=== PATIENT | female | born 1950 | race Caucasian/White ===

== ENCOUNTER → 2017-07-29 13:33 | Outpatient (CLI) | payer MEDICARE, OTHER, SELFPAY ==
--- NOTE | 2017-07-29 13:42 | CA_ITS ---
PROCEDURE: 2-D M-mode and color Doppler study INDICATIONS FOR THE TEST: Chest pain COPD Heart Murmur Tobacco Smoking Palpitations+ Fatigue Syncope Edema Hypertension Diabetes Mellitus Rheumatic Fever SOB WILLARD Obesity Hyperlipidemia Family History HD Additional History Abn EKG PATIENT INFORMATION HEIGHT: 62 WEIGHT:147 GENDER: Female B/P: 148/93 2-D/M-MODE INTERPRETATION: 2-D MEASUREMENTS OBSERVED VALUES IN CMS Right Ventricular Dimension (RVDd) 1.4 Interventricular Septum (Thickness)(IVsd) 0.7 Left Ventricular Internal Dimensions(LVIDd) 4.3 Left Ventricular Posterior Wall (Thickness)(LVPWd) 0.8 Aortic Root 2.4 Aortic Cusp Separation 2.0 Left Atrial Dimensions (LAD) 3.5 2D 1. Left atrium is mildly enlarged, left ventricle is normal size, there is no concentric left ventricular hypertrophy, visually estimated ejection fraction 55% with no obvious regional wall motion abnormality. 2. The right atrium is mildly enlarged, right ventricle is normal size and contractility. 3. The aortic valve is minimally thickened and fibrosed. 4. The mitral and tricuspid valve leaflets are minimally thickened. 5. The pulmonic valve is poorly visualized. 6. No significant pericardial effusion noted. DOPPLER INTERROGATION: Doppler interrogation of the aortic, mitral and tricuspid valvular presence of mild mitral and tricuspid regurgitation, calculated right ventricular systolic pressure is 49 mmHg consistent with moderate pulmonary hypertension, grade 1 diastolic dysfunction seen without tissue Doppler evidence of raised left atrial pressure. CONCLUSION: 1. Mild biatrial enlargement, normal left ventricular size, visually estimated ejection fraction 55% with no obvious regional wall motion abnormality. 2. Mild mitral and tricuspid regurgitation, calculated I ventricular systolic pressure is 49 mmHg consistent with moderate pulmonary hypertension. 3. Grade 1 diastolic dysfunction seen without tissue Doppler evidence of raised left atrial pressure. 4. No significant pericardial effusion noted.
== END ==
PROVIDERS: Family Provider Nurse Practitioner Family; PCP Family Medicine; Visit Provider Physician Assistant
DX: R00.2 Palpitations (principal)
CPT/HCPCS: 93306

== ENCOUNTER → 2017-10-01 09:53 | Outpatient (CLI) | payer MEDICARE, OTHER, SELFPAY ==
--- NOTE | 2017-10-01 10:01 | MM_ITS ---
MM Dig screening mamm BI w/CAD CAD Screening COMPARISON: Digital mammograms 09/03/2015 and 09/25/2016 INDICATION: There is no personal or family history of breast cancer., There is been a previous cyst aspiration left breast. TECHNIQUE: Standard CC and MLO images were obtained. R2 CAD reviewed. FINDINGS: Mild to moderate scattered fibroglandular densities are seen throughout both breasts. Again noted is a mole marker right breast. There is no suspicious lesion and no suspicious microcalcifications. There is a fatty replaced node left axilla. IMPRESSION: Fibrofatty parenchyma with no suspicious lesion seen recommend yearly follow-up. BI-RADS Category: 2 Benign Finding(s) RECOMMENDED FOLLOW-UP: 1YR - 1 YEAR FOLLOW-UP (A letter has been sent to the patient regarding results of the study.)
== END ==
PROVIDERS: Family Provider Nurse Practitioner Family; PCP Family Medicine; Visit Provider Family Medicine
DX: Z12.31 Encounter for screening mammogram for malignant neoplasm of breast (principal)
CPT/HCPCS: 77067

== ENCOUNTER → 2018-10-07 09:52 | Outpatient (CLI) | payer MEDICARE, OTHER, SELFPAY ==
--- NOTE | 2018-10-07 09:58 | MM_ITS ---
MM Dig screening mamm BI w/CAD ORDERING PHYSICIAN : Timothy Cartwright MD PATIENT AGE: 67 years GENDER: Female COMPARISON: September 2017, 2016, August 2015 INDICATION: Routine: SCREENING no hormones. No new complaints. Previous cyst aspiration left breast. Noncontributory family history TECHNIQUE: Standard CC and MLO images were obtained. R2 CAD reviewed. . Additional Axillary cc both breast included FINDINGS: Mild to moderate residual, scattered fibroglandular elements. No dominant mass nor suspicious calcifications. No significant change since prior study RIGHT BREAST:. No new areas concern. Minimal vascular calcification upper outer quadrant LEFT BREAST:No new areas significant concern IMPRESSION: Stable bilateral mammogram no areas of significant concern. BI-RADS Category: 2 Benign Finding(s) RECOMMENDED FOLLOW-UP: 1YR 1 YEAR FOLLOW-UP (A letter has been sent to the patient regarding results of the study.)
== END ==
PROVIDERS: PCP Family Medicine; Visit Provider Family Medicine
DX: Z12.31 Encounter for screening mammogram for malignant neoplasm of breast (principal)
CPT/HCPCS: 77067

== ENCOUNTER → 2018-10-15 09:09 | Outpatient (CLI) | payer MEDICARE, OTHER, SELFPAY ==
--- NOTE | 2018-10-15 09:13 | XR_ITS ---
XR tibia fibula RT 2V CLINICAL INDICATION: ITS.REASON: pain ORDERING PHYSICIAN: Patsy Dubois DPM PATIENT AGE: 67 years Comparison: None FINDINGS: There is a fracture of the lateral malleolus. The proximal and mid aspect of the tibia and fibula have an unremarkable appearance. The knee is unremarkable. Soft tissue swelling has decreased at the lateral malleoli region. IMPRESSION: Nondisplaced fracture at the tip of the lateral malleolus otherwise negative right tib-fib.
== END ==
PROVIDERS: PCP Family Medicine; Visit Provider Podiatrist
DX: T14.8XXA Other injury of unspecified body region, initial encounter (principal); S82.899A Other fracture of unspecified lower leg, initial encounter for closed fracture
CPT/HCPCS: 73590

== ENCOUNTER → 2018-11-09 12:31 | Outpatient (CLI) | payer MEDICARE, OTHER, SELFPAY ==
--- NOTE | 2018-11-09 12:36 | XR_ITS ---
XR ankle wt bearing RT min 3V HISTORY: ITS.REASON: fracture follow-up ORDERING PHYSICIAN: Patsy Dubois DPM PATIENT AGE: 67 years Comparison: 10/11/2018 FINDINGS: Avulsion fracture of the tip of the lateral malleolus is once again noted and is overall not severely changed. Fracture fragments are not significantly displaced. The talar dome has an unremarkable appearance and the ankle mortise appears intact. Soft tissue swelling has improved IMPRESSION: No change avulsion fracture lateral malleolus
== END ==
PROVIDERS: PCP Family Medicine; Visit Provider Podiatrist
DX: S82.831D Other fracture of upper and lower end of right fibula, subsequent encounter for closed fracture with routine healing
CPT/HCPCS: 73610

== ENCOUNTER → 2018-11-25 14:06 | Outpatient (CLI) | payer MEDICARE, OTHER, SELFPAY ==
--- NOTE | 2018-11-25 14:15 | XR_ITS ---
XR ankle wt bearing RT min 3V HISTORY: Pain, follow-up fracture ITS.REASON: fracture follow up ORDERING PHYSICIAN: Patsy Dubois DPM PATIENT AGE: 67 years Comparison: None FINDINGS: Avulsion fracture once again noted the tip of the lateral malleolus. Fracture line still visible no other anomalies evident. IMPRESSION: No change nondisplaced fracture of the tip of the lateral malleolus
== END ==
PROVIDERS: PCP Family Medicine; Visit Provider Podiatrist
DX: T14.8XXA Other injury of unspecified body region, initial encounter (principal); S82.831D Other fracture of upper and lower end of right fibula, subsequent encounter for closed fracture with routine healing
CPT/HCPCS: 73610

== ENCOUNTER → 2018-12-17 12:49 | Outpatient (CLI) | payer MEDICARE, OTHER, SELFPAY ==
--- NOTE | 2018-12-17 12:51 | XR_ITS ---
DEXA SCAN.-BONE DENSITY STUDY HIPS AND LUMBAR SPINE HISTORY: Postmenopausal female TECHNIQUE: DEXA scan hip and lumbar spine The most complete data summary and color graphic presentation of the today's ( and any prior ) DEXA findings are available in PACS. Definition and treatment guidelines included. COMPARISON: September 2016 DEXA FINDINGS: LUMBAR SPINE: would note that today's numbering of lumbar vertebral bodies differently than previous which , does decrease the usefulness of comparison the previous study data lumbar spine however the hips labeling is consistent.... However overall fairly stable numbers throughout the lumbar spine, with normal bone density again observed with this provides in general overview. I would note that today's study has the correct labeling of vertebral bodies L1 vertebral body demonstrates the lowest T score -0.7 with BMD1.041 g/cm sq = normal bone density Overall mean lumbar L1-L4 T score -0.1 with BMD1.173 g/cm sq . = Normal bone density 2017 prior DEXA the mean overall T score 0.0 with BMD was1.174g/cm sq was normal. Fairly stable overall since that time .. HIPS: Femoral neck density is best predictor of hip fracture risk .. Right femoral neck demonstrates the lowest T score -1.0 with BMD0.9 g/cm sq . = Low normal bone density Left femoral neck T score =-0.8 and BMD 0.923 = normal bone density Averaging all regions at both hips yields today's Mean Hip T score -0.2 with BMD0.977 g/cm sq . 2017 DEXA overall hip T score -0.5 with mean BMD0.951 g/cm sq Thus this reflects a 2.7% increase in overall mean bone density at the hips in the interval. IMPRESSION 1. LUMBAR SPINE: Normal bone density overall & at each individual vertebral level 2. HIPS: . Overall normal bone density with overall T score -0.2 .... Femoral necks with normal bone density and slight improved bone density since 2017 Right femoral neck low normal T-score -0.1.; Left femoral neck T score -0.8 WHO criteria for post-menopausal, Women: Normal: T-score at or above -1 SD Osteopenia: T-score between -1 and -2.5 SD Osteoporosis: T-score at or below -2.5 SD
== END ==
PROVIDERS: PCP Family Medicine; Visit Provider Family Medicine
DX: Z78.0 Asymptomatic menopausal state (principal)
CPT/HCPCS: 77080

== ENCOUNTER → 2019-01-13 08:39 | Outpatient (CLI) | payer MEDICARE, OTHER, SELFPAY ==
--- NOTE | 2019-01-13 08:43 | XR_ITS ---
XR ankle wt bearing RT min 3V HISTORY: Pain, follow-up fracture ITS.REASON: Fracture/dislocation ORDERING PHYSICIAN: Patsy Dubois DPM PATIENT AGE: 68 years Comparison: 11/25/2018 FINDINGS: Nondisplaced fracture once again noted at the tip of the lateral malleolus. Fracture line appears somewhat less apparent. Otherwise negative. IMPRESSION: Healing nondisplaced fracture at the tip of the lateral malleolus
== END ==
PROVIDERS: PCP Family Medicine; Visit Provider Podiatrist
DX: S82.831A Other fracture of upper and lower end of right fibula, initial encounter for closed fracture (principal); T14.8XXA Other injury of unspecified body region, initial encounter
CPT/HCPCS: 73610

== ENCOUNTER → 2019-12-30 08:55 | Outpatient (CLI) | payer MEDICARE, OTHER, SELFPAY ==
--- NOTE | 2019-12-30 09:05 | MM_ITS ---
PROCEDURE: MM DIG SCREENING MAMM BI W/CAD Digital Breast Tomosynthesis Included CLINICAL INDICATION: SCREENING There is no personal or family history of breast cancer. There has been a previous cyst aspiration left breast with benign findings. COMPARISON: [facility] DIG MAMM-SCREEN [facility] W/CAD from 09/25/2016 [facility] MM Dig screening mamm BI w/CAD from 10/01/2017 [facility] MM Dig screening mamm BI w/CAD from 10/07/2018 TECHNIQUE: Standard CC and MLO images and 3D Tomosynthesis was obtained. R2 CAD reviewed. FINDINGS: Mild diffuse scattered fibroglandular densities are seen throughout both breasts. There is a mole marker right breast. There is faint arterial calcification in each breast. There is no new or suspicious lesion in either breast and no suspicious microcalcifications. There is a fatty replaced node left axilla. IMPRESSION: Stable exam with no suspicious lesions seen BI-RAD Category: 2 Benign Finding(s) FOLLOW-UP: 1YR 1 Year Follow-up (A letter has been sent to the patient regarding results of the study.) Dictated by: Dr. Wenceslao Hoover MD 12/30/2019 09:[address] Wenceslao Hoover MD in [place] 12/30/2019 09:36
== END ==
PROVIDERS: PCP Family Medicine; Visit Provider Family Medicine
DX: Z12.31 Encounter for screening mammogram for malignant neoplasm of breast (principal)
CPT/HCPCS: 77063; 77067

== ENCOUNTER → 2020-12-31 09:52 | Outpatient (CLI) | payer MEDICARE, OTHER, SELFPAY ==
--- NOTE | 2020-12-31 09:56 | MM_ITS ---
PROCEDURE INFORMATION: Exam: MG Screening 3D Mammography Exam date and time: 12/31/2020 9:56 AM Age: 70 years old Clinical indication: Encounter for screening mammogram for malignant neoplasm of breast TECHNIQUE: Imaging protocol: Screening tomosynthesis and 2D mammography including computer-aided detection (CAD) when performed. COMPARISON: 1. MG MM DIG SCREENING MAMM BI W/CAD 12/30/2019 9:05 AM 2. MG [facility] MM Dig screening mamm BI w/CAD 10/07/2018 10:20 AM FINDINGS: MAMMOGRAPHY: Breast composition: The breast tissue is composed of scattered areas of fibroglandular density. Mass: None. Architectural distortion: None. Calcifications: No suspicious calcifications. Asymmetric density: None. Skin thickening: None. Axillary adenopathy: None. IMPRESSION: No mammographic evidence of malignancy. Annual screening is recommended unless otherwise clinically indicated. ASSESSMENT: BI-RADS Category 1: Negative
== END ==
PROVIDERS: PCP Family Medicine; Visit Provider Family Medicine
DX: Z12.31 Encounter for screening mammogram for malignant neoplasm of breast (principal)
CPT/HCPCS: 77063; 77067

== ENCOUNTER → 2021-01-02 13:53 | Outpatient (POV) | payer MEDICARE, OTHER, SELFPAY | DX: Z00.00 Encounter for general adult medical examination without abnormal findings (principal) ==

== ENCOUNTER 2021-03-29 01:59 | Emergency (ER) | payer MEDICARE, OTHER, SELFPAY ==
--- NOTE | 2021-03-29 01:59 | ECG_ITS ---
APPROVED REPORT Exam: Resting ECG HR:63 bpm ECG Measurements Heart Rate 63 AXES IA 144 P 61 QRSd 86 QRS 59 QT 386 T 82 QTc 395 Conclusion Normal sinus rhythm Possible Left atrial enlargement ST abnormality, possible digitalis effect Abnormal ECG Electronically signed by : Timothy Gomez MD 04/01/2021 21:02:27
[2021-03-29 02:00] VITALS: BP 190/82; PULSE 72; RESP 18; O2SAT 98; BMI 30.2
--- NOTE | 2021-03-29 02:07 | XR_ITS ---
PROCEDURE INFORMATION: Exam: XR Chest Exam date and time: 03/29/2021 2:07 AM Age: 70 years old Clinical indication: Sternal or substernal pain; Patient HX: Mid lower chest pain off and on TECHNIQUE: Imaging protocol: XR of the chest. Views: 2 views. COMPARISON: No relevant prior studies available. FINDINGS: Lungs: Unremarkable. No consolidation. Pleural spaces: No pleural effusion. No pneumothorax. Heart/Mediastinum: Normal heart size. Bones/joints: [id number] spondylosis. IMPRESSION: No acute findings.
--- NOTE | 2021-03-29 02:09 | HMH.EDCP ---
ED Disposition Clinical Impression: Chest pain Qualifiers: Chest pain type: precordial pain Qualified Code(s): R07.2 - Precordial pain Disposition: Home, Self-Care Condition on Discharge: Good Instructions: DI for Atypical Chest Pain Additional Instructions: see pcp this am Referrals: Timothy Cartwright MD [Primary Care Provider] - - Critical Care Critical Care Time: No Attestation: On , the high probability of a clinically significant, sudden or life threatening deterioration of the following system(s) required my full and direct attention, intervention and personal management. The time I documented below is in addition to time spent performing reported procedures but includes the following listed in this critical care notation. Medical Decision Making - Medical Records Medical records reviewed: Yes: I reviewed the patient's medical records. - Epter Inquiry Pt receiving controlled substance: No Vital Signs: 03/29/21 02:00 Pulse Rate [Apical] 72 Respiratory Rate 18 Blood Pressure [Right Arm] 190/82 H Blood Pressure Mean [Right Arm] 118 Blood Pressure Source [Right Arm] Automatic Cuff Blood Pressure Position [Right Arm] Sitting 02 Sat by Pulse Oximetry 98 Oxygen Delivery Method Room Air - Lab Data Lab results reviewed: Yes: I reviewed the patient's lab results. Lab Results 03/29/21 02:23: WBC 8.0, RBC 5.39, Hgb 16.2, Hct 49.8 H, MCV 92.3, MCH 30.0, MCHC 32.5, RDW 13.7, Plt Count 195, MPV 9.4, Neut % (Auto) 68.1, Lymph % (Auto) 23.0, Schleicher % (Auto) 5.0, Eos % (Auto) 2.9, Baso % (Auto) 1.0, Neut # (Auto) 5.4, Lymph # (Auto) 1.8, Schleicher # (Auto) 0.4, Eos # (Auto) 0.2, Baso # (Auto) 0.1, ESR 23 03/29/21 02:23: Sodium 140, Potassium 4.3, Chloride 98, Carbon Dioxide 32 H, Anion Gap 14.3, BUN 24 H, Creatinine 0.80, Estimated Creat Clear 61, Estimated GFR 71, Est GFR ( Amer) 86, Glucose 141 H, Calcium 10.1, Total Bilirubin 0.7, Direct Bilirubin 0.3, Conjugated Bilirubin 0.0, Indirect Bilirubin 0.4, Unconjugated Bilirubin 0.3, AST 29, ALT 26, Alkaline Phosphatase 88, Troponin I < 0.01, C-Reactive Protein 2.5, Total Protein 8.2, Albumin 4.3, Amylase 84, Lipase 121, Procalcitonin 0.054 Result diagrams: 03/29/21 02:23 03/29/21 02:23 Orders (Tests/Meds): ED MEDICATIONS Generic Name Dose Route Start Last Admin Trade Name Freq PRN Reason Stop Dose Admin Sodium Chloride 1,000 mls @ 999 mls/hr 03/29/21 02:15 03/29/21 02:12 Sod Chlor 0.9% 1000ml Bag IV 03/29/21 03:15 999 mls/hr .Q1H1M RACHANA Administration Sodium Chloride 8 ml 03/29/21 02:09 Sodium Chloride 0.9% 10ml Vial IV 04/28/21 02:08 NEEDED PRN dilute pepcid Discontinued Medications Generic Name Dose Route Start Last Admin Trade Name Freq PRN Reason Stop Dose Admin Famotidine 20 mg 03/29/21 02:09 03/29/21 02:12 Famotidine 20mg/2ml Vial IV 03/29/21 02:10 20 mg ONCE ONE Administration Ketorolac Tromethamine 30 mg 03/29/21 02:09 03/29/21 02:12 Ketorolac 30mg/Ml Vial IV 03/29/21 02:10 30 mg ONCE ONE Administration Metoclopramide HCl 10 mg 03/29/21 02:09 03/29/21 02:12 Metoclopramide Hcl 10mg/2ml Vial IVP 03/29/21 02:10 10 mg ONCE ONE Administration ORDERS Category Date Time Status XR chest 2V Stat Exams 03/29/21 02:07 Taken Troponin I Q3H Lab 03/29/21 05:15 Ordered Troponin I Q3H Lab 03/29/21 08:15 Ordered - Radiology Data #1 Image(s): Chest Image Reviewed: Yes I reviewed the patient's radiology image Preliminary Findings: Normal/NAD - ECG Data Tracing #1 Normal Sinus Rhythm: Yes Ischemic changes: non-specific ST-T wave changes Medical Decision Narrative: improved after meds and stable exam and labs does not wish to be admitted Chest Pain HPI - General Chief Complaint: Chest Pain Stated Complaint: Chest Pain Time Seen by Provider: 03/29/21 02:05 Mode of Arrival: Ambulatory Source of Information: Patient, Medical Record Limitations: No Limi
--- NOTE | 2021-03-29 02:28 | PC.NURSE ---
PT IN BATHROOM. BACK FROM CT
[2021-03-29 02:30] LABS: Basophils # 0.1 K/mm3 (0-0.2); Eosinophils # 0.2 K/mm3 (0.0-0.4); Eosinophils % 2.9 % (0.1-12.0); Hematocrit 49.8 % (37.0-47.0); Hemoglobin 16.2 g/dL (12.2-16.2); Lymphocytes # 1.8 K/mm3 (0.7-4.5); Mean Corpuscular HGB Conc 32.5 g/dL (31.8-35.4); Mean Corpuscular Volume 92.3 fl (81-99); Mean Platelet Volume 9.4 fl (7.4-10.4); Monocytes # 0.4 K/mm3 (0.1-1.0); Neutrophils # 5.4 K/mm3 (1.8-7.8); Neutrophils % 68.1 % (37.0-80.0); Platelet Count 195 K/mm3 (142-424); Red Blood Count 5.39 M/mm3 (4.20-5.40); Red Cell Distribution Width 13.7 % (11.5-17.5)
[2021-03-29 02:36] VITALS: BP 175/97; PULSE 65; RESP 16; O2SAT 99
[2021-03-29 02:39] LABS: Alanine Aminotransferase 26 U/L (12-78); Albumin Level 4.3 g/dl (3.5-5.0); Alkaline Phosphatase 88 U/L (38-126); Amylase 84 U/L (30-110); Anion Gap 14.3 mEq/L (5-15); Aspartate Amino Transferase 29 U/L (14-36); Bilirubin,Direct 0.3 mg/dl (0.0-0.4); Bilirubin,Indirect 0.4 mg/dL (0.0-0.9); Bilirubin,Total 0.7 mg/dl (0.2-1.3); Bilirubin,Unconjugated 0.3 mg/dL (0.0-1.1); Blood Urea Nitrogen 24 mg/dl (7-17); Calcium 10.1 mg/dl (8.4-10.2); Carbon Dioxide 32 mmol/L (22.0-30.0); Chloride 98 mmol/L (98-107); Creatinine Clearance Estimated 61 mL/min (50-200); Estimated Glomerular Filt Rate 71 ml/min (>60); GFR (African American) 86 ML/MIN (>60); Glucose 141 mg/dl (74-100); Lipase 121 U/L (23-300); Potassium 4.3 mmoL/L (3.5-5.1); Sodium 140 mmol/L (136-145); Total Protein,Serum 8.2 g/dl (6.3-8.2)
[2021-03-29 02:45] LABS: C-Reactive Protein 2.5 mg/L (0-4)
[2021-03-29 02:55] LABS: Troponin I < 0.01 ng/ml (0.00-0.034)
[2021-03-29 02:59] LABS: Procalcitonin 0.054 ng/mL (0.0-2.0)
[2021-03-29 03:00] VITALS: BP 159/99; PULSE 70; RESP 16; O2SAT 100
[2021-03-29 03:05] LABS: Erythrocyte Sedimentation Rate 23 mm/hr (0-30)
[2021-03-29 03:14] VITALS: BP 177/90; PULSE 88; RESP 16; TEMP 36.8; O2SAT 98
== END 2021-03-29 03:26 | disposition home or self-care (01) ==
PROVIDERS: Emergency Provider Emergency Medicine; PCP Family Medicine
DX: R07.2 Precordial pain (principal); R10.13 Epigastric pain; I10 Essential (primary) hypertension
CPT/HCPCS: 71046; 80048; 80076; 82150; 83690; 84145; 84484; 85025; 85651; 86140; 93005; 96365; 96375; 99283

== ENCOUNTER 2021-08-17 10:44 | Emergency (ER) | payer MEDICARE, OTHER, SELFPAY ==
[2021-08-17 12:02] VITALS: BP 146/89; PULSE 69; RESP 19; TEMP 37.4; O2SAT 97; BMI 29.2
--- NOTE | 2021-08-17 12:06 | HMH.EDUTC ---
[facility] [place] Disposition Clinical Impression: Pneumonia due to COVID-19 virus Disposition: Home, Self-Care Condition on Discharge: Good Instructions: Pneumonia-Adult Additional Instructions: covid swab was sent to lab, call tomorrow for results. self isolate until test results are known to be negative No sign of a bacterial infection. Likely viral. Viruses can take 7-14 days to run their course. Nasal saline and bulb syringe or nose Delisa to remove nasal drainage to help with nasal congestion. Hard to eat, drink, sleep with nasal congestion so important to keep this cleaned out. Monitor temp. Tylenol or Motrin as needed for pain or fever Encourage fluids, water, Gatorade, Powerade, Pedialyte if /toddler/child Warm salt water gargles Warm fluids Sore throat lozenges Sleep elevated Humidifier/vaporizer Follow-up immediately for new or worsening symptoms or no noticeable improvement over the next 48-72 hours. Prescriptions: predniSONE [Prednisone 20mg Tab] 20 mg PO BID #10 tab Transmission Status: Pending to [facility] Azithromycin [Zithromax 250mg tab] 250 mg PO DIRECTED #6 tab Transmission Status: Pending to [facility] Referrals: Timothy Cartwright MD [Primary Care Provider] - Time of Disposition: 13:51 Medical Decision Making - Peter Inquiry Pt receiving controlled substance: No Vital Signs: 08/17/21 12:02 Temperature 99.3 F Temperature Source Oral Pulse Rate [Left] 69 Respiratory Rate 19 Blood Pressure [Right Arm] 146/89 H Blood Pressure Mean [Right Arm] 108 02 Sat by Pulse Oximetry 97 - Lab Data Lab Results 08/17/21 12:46: WBC 8.8, RBC 5.14, Hgb 15.2, Hct 48.0 H, MCV 93.4, MCH 29.6, MCHC 31.7 L, RDW 13.8, Plt Count 183, MPV 10.0, Neut % (Auto) 88.5 H, Lymph % (Auto) 6.0 L, Kent % (Auto) 3.5, Eos % (Auto) 1.4, Baso % (Auto) 0.7, Neut # (Auto) 7.8, Lymph # (Auto) 0.5 L, Kent # (Auto) 0.3, Eos # (Auto) 0.1, Baso # (Auto) 0.1 08/17/21 12:46: Sodium 138, Potassium 4.3, Chloride 104, Carbon Dioxide 27, Anion Gap 11.3, BUN 18 H, Creatinine 0.70, Estimated Creat Clear 63, Estimated GFR 82, Est GFR ( Amer) 100, Glucose 112 H, Calcium 9.9, Troponin I < 0.01 Result diagrams: 08/17/21 12:46 08/17/21 12:46 Orders (Tests/Meds): ORDERS Category Date Time Status Complete Blood Count Auto Diff Stat Lab 08/17/21 12:46 Results ECG Request by /Roddy Stat Y 08/17/21 12:[address] [facility] [place] HPI - General Chief complaint: Urgent [facility] Center Stated complaint: covid pos at home test, vomiting, diarrhea Time Seen by Provider: 08/17/21 12:11 Mode of Arrival: Ambulatory Source of Information: Patient Limitations: No Limitations Description of Symptoms (Recalled from Triage Doc. by RN): COVID POSITIVE. pt c/o chest congestion and n/v/d x2 days. HEENT Symptoms (Recalled from RN notes): No Resp Symptoms (Recalled from RN notes): Yes (chest congestion) Skin Symptoms (Recalled from RN notes): No MS Symptoms (Recalled from RN notes): No Functional Status (Recalled from RN notes): wnl - History of Present Illness Provider Complaint: 70 yr old female presents for COVID POSITIVE. c/o chest congestion and n/v/d x2 days. pt states pain in center chest does not radiate and does not get worse its a constant pain in mid chest since yesterday but has not gotten worse. pt does not want to go to ed - Related Data Home Medications Medication Instructions Recorded Confirmed bisoprolol fumarate 5 mg tablet PO 90 Days #45 tab 10/15/18 01/13/19 Previous Rx's Medication Instructions Recorded Walker [Cyrus, Isa] 1 each MISCELLANEOUS DIRECTED 10/11/18 #1 each diclofenac sodium 1 % topical gel 4 g TOPICAL QID #30 g 11/25/18 Azithromycin [Zithromax 250mg 250 mg PO DIRECTED #6 tab 08/17/21 tab] predniSONE [Prednisone 20mg 20 mg PO BID #10 tab 08/17/21 Tab] Allergies Allergy/AdvReac Type Severity Reaction Status Date / Time sulfamethoxazole All
--- NOTE | 2021-08-17 12:14 | XR_ITS ---
PROCEDURE INFORMATION: Exam: XR Chest Exam date and time: 08/17/2021 12:14 PM Age: 70 years old Clinical indication: Shortness of breath; Additional info: Covid, SOB TECHNIQUE: Imaging protocol: XR of the chest. Views: 2 views. COMPARISON: CR XR CHEST 2V 03/29/2021 2:17 AM FINDINGS: Lungs: The lateral view shows slightly increased hazy opacity projected over the anterior lower chest compared with the previous study from 03/29/2021, which could be subtle airspace disease in the right middle lobe or lingula. There is chronic slight bilateral infrahilar interstitial prominence. No focal consolidation. Pleural spaces: Unremarkable. No significant pleural effusion. No pneumothorax. Heart/Mediastinum: Upper normal heart size. Bones/joints: Mild chronic thoracolumbar scoliosis, multilevel disc narrowing and spondylosis. IMPRESSION: 1. Question minimal new hazy airspace disease in the right middle lobe or lingula compared with 03/29/2021, only seen on the lateral view. 2. No focal consolidation. 3. Additional nonemergency and chronic findings as above. 4. Note: Subtle ground-glass opacities of COVID-19 pneumonia can be radiographically occult on plain chest x-ray. If further imaging is warranted by the clinical findings or course, recommend CT.
--- NOTE | 2021-08-17 12:29 | ECG_ITS ---
APPROVED REPORT Exam: Resting ECG HR:65 bpm ECG Measurements Heart Rate 65 AXES VA 158 P 50 QRSd 73 QRS 67 QT 380 T 82 QTc 391 Conclusion SINUS RHYTHM MODERATE ST DEPRESSION [0.05+ mV ST DEPRESSION] ABNORMAL ECG UNCONFIRMED REPORT Electronically signed by : Timothy Gomez MD 08/19/2021 18:35:51
[2021-08-17 12:58] LABS: Basophils # 0.1 K/mm3 (0-0.2); Basophils % 0.7 % (0.1-2.0); Eosinophils # 0.1 K/mm3 (0.0-0.4); Eosinophils % 1.4 % (0.1-12.0); Hemoglobin 15.2 g/dL (12.2-16.2); Lymphocytes # 0.5 K/mm3 (0.7-4.5); Mean Corpuscular HGB Conc 31.7 g/dL (31.8-35.4); Mean Corpuscular Hemoglobin 29.6 pg (27.0-31.2); Mean Corpuscular Volume 93.4 fl (81-99); Monocytes # 0.3 K/mm3 (0.1-1.0); Monocytes % 3.5 % (1.7-9.3); Neutrophils # 7.8 K/mm3 (1.8-7.8); Neutrophils % 88.5 % (37.0-80.0); Platelet Count 183 K/mm3 (142-424); Red Blood Count 5.14 M/mm3 (4.20-5.40); Red Cell Distribution Width 13.8 % (11.5-17.5); White Blood Count 8.8 K/mm3 (4.8-10.8)
[2021-08-17 13:01] LABS: Chloride 104 mmol/L (98-107); MANUAL DIFFERENTIAL MANUAL DIFFERENTIAL (MANUAL DIFF)
[2021-08-17 13:02] LABS: Potassium 4.3 mmoL/L (3.5-5.1); Sodium 138 mmol/L (136-145)
[2021-08-17 13:04] LABS: Blood Urea Nitrogen 18 mg/dl (7-17); Creatinine Clearance Estimated 63 mL/min (50-200); Estimated Glomerular Filt Rate 82 ml/min (>60); GFR (African American) 100 ML/MIN (>60)
[2021-08-17 13:05] LABS: Anion Gap 11.3 mEq/L (5-15); Calcium 9.9 mg/dl (8.4-10.2); Carbon Dioxide 27 mmol/L (22.0-30.0); Glucose 112 mg/dl (74-100)
[2021-08-17 13:23] LABS: Troponin I < 0.01 ng/ml (0.00-0.034)
[2021-08-17 13:56] VITALS: BP 146/89; PULSE 69; RESP 19; TEMP 37.4
[2021-08-17 14:36] LABS: Hypochromasia 1+; Lymphocytes % 12 % (10-50); Monocytes % 5 % (2-9); Neutrophils % 83 % (42-76); Platelet Estimate Normal; Total Cells Counted 100
== END 2021-08-17 13:57 | disposition home or self-care (01) ==
PROVIDERS: Emergency Provider Nurse Practitioner Family; PCP Family Medicine
DX: U07.1 COVID-19 (principal); J12.82 Pneumonia due to coronavirus disease 2019; I10 Essential (primary) hypertension; I49.9 Cardiac arrhythmia, unspecified; Z88.2 Allergy status to sulfonamides; Z79.899 Other long term (current) drug therapy
CPT/HCPCS: G0463; 71046; 80048; 84484; 85007; 85025; 93005; 93041; 99202

== ENCOUNTER → 2021-11-18 09:12 | Outpatient (CLI) | payer MEDICARE, OTHER, SELFPAY ==
[2021-11-18 13:34] LABS: Basophils # 0.1 K/mm3 (0-0.2); Eosinophils # 0.1 K/mm3 (0.0-0.4); Eosinophils % 2.4 % (0.1-12.0); Hematocrit 46.7 % (37.0-47.0); Hemoglobin 15.4 g/dL (12.2-16.2); Lymphocytes # 1.3 K/mm3 (0.7-4.5); Lymphocytes % 23.8 % (10-50); Mean Corpuscular HGB Conc 33.1 g/dL (31.8-35.4); Mean Corpuscular Hemoglobin 29.1 pg (27.0-31.2); Mean Corpuscular Volume 87.9 fl (81-99); Mean Platelet Volume 9.5 fl (7.4-10.4); Monocytes # 0.3 K/mm3 (0.1-1.0); Neutrophils # 3.7 K/mm3 (1.8-7.8); Neutrophils % 66.8 % (37.0-80.0); Platelet Count 213 K/mm3 (142-424); Red Blood Count 5.32 M/mm3 (4.20-5.40); Red Cell Distribution Width 13.1 % (11.5-17.5); White Blood Count 5.5 K/mm3 (4.8-10.8)
[2021-11-18 14:12] LABS: Alanine Aminotransferase 20 U/L (12-78); Albumin Level 4.1 g/dl (3.5-5.0); Albumin/Globulin Ratio 1.5 (1.1-1.8); Alkaline Phosphatase 57 U/L (38-126); Anion Gap 8.5 mEq/L (5-15); Aspartate Amino Transferase 27 U/L (14-36); Bilirubin,Total 1.2 mg/dl (0.2-1.3); Blood Urea Nitrogen 18 mg/dl (7-17); Calcium 9.5 mg/dl (8.4-10.2); Carbon Dioxide 27 mmol/L (22.0-30.0); Chloride 107 mmol/L (98-107); Chol/HDL Ratio 3.3 (1-3.5); Cholesterol 165 mg/dl (140-200); Estimated Glomerular Filt Rate 71 ml/min (>60); GFR (African American) 86 ML/MIN (>60); Globulin 2.7 g/dL (1.3-3.2); Glucose 106 mg/dl (74-100); HDL Cholesterol 50 mg/dl (40-60); Potassium 4.5 mmoL/L (3.5-5.1); Sodium 138 mmol/L (136-145); Total Protein,Serum 6.8 g/dl (6.3-8.2); Triglycerides 70 mg/dl (30-150); VLDL Cholesterol 14 mg/dL (0-40)
[2021-11-18 14:22] LABS: Direct LDL Cholesterol 83.75 mg/dL (100-129)
[2021-11-18 14:42] LABS: Thyroid Stimulating Hormone 2.15 uIU/mL (0.465-4.68)
== END ==
PROVIDERS: PCP Family Medicine; Visit Provider Family Medicine
DX: Z00.00 Encounter for general adult medical examination without abnormal findings (principal); S82.899A Other fracture of unspecified lower leg, initial encounter for closed fracture; R07.9 Chest pain, unspecified; Z76.89 Persons encountering health services in other specified circumstances; J12.82 Pneumonia due to coronavirus disease 2019; U09.9 Post COVID-19 condition, unspecified
CPT/HCPCS: 80053; 80061; 84443; 85025

== ENCOUNTER → 2022-01-01 09:56 | Outpatient (CLI) | payer MEDICARE, OTHER, SELFPAY ==
--- NOTE | 2022-01-01 09:56 | MM_ITS ---
PROCEDURE INFORMATION: Exam: MG Bilateral Screening 3D Mammography Exam date and time: 01/01/2022 9:50 AM Age: 71 years old Clinical indication: Screening mammogram. TECHNIQUE: Imaging protocol: Bilateral Screening tomosynthesis and 2D mammography including computer-aided detection (CAD) when performed. COMPARISON: 1. MG MM DIG SCREENING MAMM BI W/CAD 12/31/2020 9:56 AM 2. MG MM DIG SCREENING MAMM BI W/CAD 12/30/2019 9:05 AM 3. MG [facility] MM Dig screening mamm BI w/CAD 10/07/2018 10:20 AM 4. MG [facility] MM Dig screening mamm BI w/CAD 10/01/2017 10:10 AM FINDINGS: MAMMOGRAPHY: Breast composition: There are scattered areas of fibroglandular density. Mass: None. Architectural distortion: No new or suspicious architectural distortion. Calcifications: No new or suspicious calcifications are present Asymmetric density: No new or suspicious asymmetric density is present Skin thickening: None. Axillary adenopathy: None. IMPRESSION: No mammographic evidence of malignancy. Recommend annual screening mammography unless otherwise clinically indicated. ASSESSMENT: BI-RADS category 1: Negative
== END ==
PROVIDERS: PCP Family Medicine; Visit Provider Family Medicine
DX: Z12.31 Encounter for screening mammogram for malignant neoplasm of breast (principal)
CPT/HCPCS: 77063; 77067

== ENCOUNTER → 2022-10-02 09:55 | Outpatient (CLI) | payer MEDICARE, OTHER, SELFPAY ==
[2022-10-02 10:40] LABS: Basophils # 0.1 K/mm3 (0-0.2); Eosinophils # 0.3 K/mm3 (0.0-0.4); Eosinophils % 4.5 % (0.1-12.0); Hematocrit 46.5 % (37.0-47.0); Hemoglobin 15.3 g/dL (12.2-16.2); Lymphocytes # 1.5 K/mm3 (0.7-4.5); Lymphocytes % 26.2 % (10-50); Mean Corpuscular HGB Conc 32.9 g/dL (31.8-35.4); Mean Corpuscular Hemoglobin 29.5 pg (27.0-31.2); Mean Corpuscular Volume 89.6 fl (81-99); Mean Platelet Volume 9.3 fl (7.4-10.4); Monocytes # 0.3 K/mm3 (0.1-1.0); Monocytes % 4.6 % (1.7-9.3); Neutrophils # 3.6 K/mm3 (1.8-7.8); Neutrophils % 62.8 % (37.0-80.0); Platelet Count 215 K/mm3 (142-424); Red Blood Count 5.19 M/mm3 (4.20-5.40); White Blood Count 5.7 K/mm3 (4.8-10.8)
[2022-10-02 11:24] LABS: Alanine Aminotransferase 22 U/L (12-78); Albumin/Globulin Ratio 1.5 (1.1-1.8); Alkaline Phosphatase 65 U/L (38-126); Anion Gap 8.4 mEq/L (5-15); Aspartate Amino Transferase 24 U/L (14-36); Bilirubin,Total 1.1 mg/dl (0.2-1.3); Blood Urea Nitrogen 18 mg/dl (7-17); Calcium 8.9 mg/dl (8.4-10.2); Carbon Dioxide 28 mmol/L (22.0-30.0); Chloride 106 mmol/L (98-107); Estimated Glomerular Filt Rate 62 ml/min (>60); GFR (African American) 74 ML/MIN (>60); Globulin 2.7 g/dL (1.3-3.2); Glucose 101 mg/dl (74-100); Potassium 4.4 mmoL/L (3.5-5.1); Sodium 138 mmol/L (136-145); Total Protein,Serum 6.7 g/dl (6.3-8.2)
== END ==
PROVIDERS: PCP Family Medicine; Visit Provider Obstetrics & Gynecology
DX: N95.0 Postmenopausal bleeding (principal); Z01.812 Encounter for preprocedural laboratory examination
CPT/HCPCS: 36415; 80053; 85025

== ENCOUNTER 2022-10-06 06:03 | Day surgery (SDC) | payer MEDICARE, OTHER, SELFPAY ==
[2022-10-06] VITALS (8 sets, daily range): BP systolic 121–166; BP diastolic 68–89; PULSE 68–91; RESP 10–18; TEMP 36.2–36.8; O2SAT 92–97; BMI 33.5
--- NOTE | 2022-10-06 08:08 | P.PN_ITS ---
[facility] Disclaimer: The information contained in this section may have been updated after the patient was seen, as this information can be updated by other users. Medical History (Updated 10/06/22 @ 06:27 by Loren Rivera RN) Arrhythmia History of COVID-19 History of gastroesophageal reflux (GERD) Postmenopausal bleeding Thickened endometrium Surgical History History of surgery Hx of colonoscopy Family History (Updated 10/06/22 @ 06:27 by Loren Rivera RN) Other Glaucoma Hypertension Social History (Updated 10/06/22 @ 06:27 by Loren Rivera RN) Smoking Status: Never smoker alcohol intake: never substance use type: denies use current occupational status: retired Travel in the last 8 weeks: None household members: spouse [facility] Anesthesia Checklist Patient Identification Patient Identification: Arm Band and Verbal (Name & ) Structural Data Admitted From: Home Planned Operative Procedure/s: Hysteroscopy/D&C Consent for Planned Operative Procedure(s) Verified: Yes Verified Documents: Surgical Consent NPO Status Verified Time NPO: 00:00 Chart Verification Results Verified: CBC and BMP Additional verifications Anesthesia Reactions: No Hx Blood Transfusions: No Blood Transfusion Reaction: No Airway Assessment C-Spine Mobility Assessed: Yes TMJ Mobility Assessed: Yes Dentition: Good Dentition Neurological Assessment Level of Consciousness: Awake, Alert and Appropriate Anesthesia Plan ASA Class: II Anesthesia Type: General
--- NOTE | 2022-10-06 08:09 | EXP.ANES.I ---
[facility] Anesthesia Record Part I Anesthesia Record I Intake, IV Amount: 600 Estimated blood loss (mL): 5 Urine output (mL): 0 Blood Pressure: 132/70 SaO2: 93 Pulse Rate: 70 Respiratory Rate: 10 Temperature: 97.2 F Patient is:: Drowsy, Oral/Nasal airway and Stable Stable to PACU at:: 08:07
--- NOTE | 2022-10-06 08:32 | P.OP_ITS ---
Date of procedure: 10/06/22 Pre-op Diagnosis:: 1. Postmenopausal bleeding 2. Thickened endometrium Post-op Diagnosis:: 1. Postmenopausal bleeding 2. Thickened endometrium 3. Endometrial polyp Procedure performed:: Hysteroscopy, D&C with Myosure polypectomy Surgeon:: Steafnia Shelton DO Harbor Pilot(s):: N/a [facility] REPRESENTATIVE:: Syed Agosto Anesthesia: GETA Estimated blood loss (mL): 5 Clinical Note:: Ms Loulou Gayle is a very pleasant 71 yo female who presents to [facility] for scheduled procedure. She went through menopause > 20 years ago. She reports she had some spotting on 08/29 that progressed to heavier flow 08/30 and then spotting again 08/31 at night. She admits she has had pelvic pressure for the past 1.5 months that went away after bleeding. She has not experienced anything like this in the past. She admits she hasn't bled for about 1 week. Pelvic ultrasound 09/03/22 demonstrated endometrial thickness of 12 mm. Operative findings:: 1. On bimanual exam, uterus normal size and shape, midposition 2. Bilateral tubal ostia easily visualized 3. Large polyp filling endometrial cavity 4. Grossly normal appearing atrophic endometrial tissue Operative note:: Risks, benefits and alternatives were discussed with the patient. Risks include but are not limited to bleeding, infection, uterine perforation and VTE. Patient voiced understanding and agreed to proceed. She was wheeled back to the operating room and placed under general anesthesia without difficulty. She was placed in dorsal lithotomy position and prepped and draped in the normal sterile fashion. Straight catheter was used to drain the bladder. A bimanual exam was performed. A weighted Auvard was placed in the vaginal vault. Single tooth tenaculum was placed on anterior lip of the cervix. Uterus sounded to 8. Sequential Sudhir dilators were used to dilate the cervical os. Hysteroscope inserted through the cervical os and into the uterine cavity. See findings a randee. Pictures were taken. Myosure device was inserted through the hysteroscope and polypectomy was performed under direct visualization. Hysteroscope and Myosure device was removed. A small size sharp curette was inserted through the cervix into the uterine cavity. The endometrial cavity was curetted with a systemic [id number] movement of the curette so that all possible endometrium was sampled. Endometrial polyp and curettings will be sent to pathology for review. Instruments were removed from the vagina. Tenaculum site was noted to be oozing. Silver nitrate stick x 1 was applied to tenaculum site. Hemostasis was noted. Patient was awaken from anesthesia without difficulty. She was transported to recovery room in stable condition. Patient will be discharged home when awake and ambulating. She was given postop instructions as well as instructions to follow-up in the office in 2 weeks. Condition: stable Disposition: same day Specimens:: 1. Endometrial polyp 2. Endometrial curettings Complications:: None
== END 2022-10-06 09:07 | disposition home or self-care (01) ==
PROVIDERS: PCP Family Medicine; Visit Provider Obstetrics & Gynecology
DX: N95.0 Postmenopausal bleeding (principal); R93.89 Abnormal findings on diagnostic imaging of other specified body structures; N84.0 Polyp of corpus uteri; Z79.899 Other long term (current) drug therapy
CPT/HCPCS: 58558; 88305; J2405

== ENCOUNTER → 2023-01-05 09:54 | Outpatient (CLI) | payer MEDICARE, OTHER, SELFPAY ==
--- NOTE | 2023-01-05 09:55 | MM_ITS ---
PROCEDURE INFORMATION: Exam: MG Bilateral Screening 3D Mammography Exam date and time: 01/05/2023 9:46 AM Age: 72 years old Clinical indication: Screening examination TECHNIQUE: Imaging protocol: Bilateral Screening tomosynthesis and 2D mammography including computer-aided detection (CAD) when performed. COMPARISON: 1. MG MM DIG SCREENING MAMM BI W/CAD 01/01/2022 9:50 AM 2. MG MM DIG SCREENING MAMM BI W/CAD 12/31/2020 9:56 AM FINDINGS: MAMMOGRAPHY: Breast composition: There are scattered areas of fibroglandular density. Mass: None. Architectural distortion: None. Calcifications: No suspicious calcifications. Asymmetric density: None. Skin thickening: None. Axillary adenopathy: None. IMPRESSION: No mammographic evidence of malignancy. Annual screening is recommended unless otherwise clinically indicated. ASSESSMENT: BI-RADS Category 1: Negative
== END ==
PROVIDERS: PCP Family Medicine; Visit Provider Family Medicine
DX: Z12.31 Encounter for screening mammogram for malignant neoplasm of breast (principal)
CPT/HCPCS: 77063; 77067

== ENCOUNTER → 2023-06-09 07:10 | Outpatient (CLI) | payer MEDICARE, OTHER, SELFPAY ==
[2023-06-09 18:53] LABS: Coronavirus 19, PCR Not Detected (NotDetected); Influenza A, PCR Not Detected (NotDetected); Influenza B, PCR Not Detected (NotDetected)
== END ==
PROVIDERS: PCP Internal Medicine; Visit Provider Internal Medicine
DX: R06.02 Shortness of breath (principal); R05.8 Other specified cough; R19.7 Diarrhea, unspecified
CPT/HCPCS: 87636

== ENCOUNTER → 2023-07-08 07:40 | Outpatient (CLI) | payer MEDICARE, OTHER, SELFPAY ==
[2023-07-08 18:50] LABS: Basophils # 0.1 K/mm3 (0-0.2); Basophils % 1.2 % (0.1-2.0); Eosinophils # 0.4 K/mm3 (0.0-0.4); Eosinophils % 7.1 % (0.1-12.0); Hematocrit 44.3 % (37.0-47.0); Hemoglobin 14.8 g/dL (12.2-16.2); Lymphocytes # 1.8 K/mm3 (0.7-4.5); Lymphocytes % 29.4 % (10-50); Mean Corpuscular HGB Conc 33.5 g/dL (31.8-35.4); Mean Corpuscular Hemoglobin 29.8 pg (27.0-31.2); Mean Corpuscular Volume 88.9 fl (81-99); Mean Platelet Volume 11.4 fl (7.4-10.4); Monocytes # 0.3 K/mm3 (0.1-1.0); Monocytes % 5.7 % (1.7-9.3); Neutrophils # 3.4 K/mm3 (1.8-7.8); Neutrophils % 56.6 % (37.0-80.0); Platelet Count 215 K/mm3 (142-424); Red Blood Count 4.98 M/mm3 (4.20-5.40); Red Cell Distribution Width 14.5 % (11.5-17.5)
[2023-07-08 19:15] LABS: Alanine Aminotransferase 23 U/L (12-78); Albumin Level 4.1 g/dl (3.5-5.0); Albumin/Globulin Ratio 1.3 (1.1-1.8); Alkaline Phosphatase 71 U/L (38-126); Anion Gap 8.5 mEq/L (5-15); Aspartate Amino Transferase 27 U/L (14-36); Bilirubin,Total 1.1 mg/dl (0.2-1.3); Blood Urea Nitrogen 24 mg/dl (7-17); Carbon Dioxide 26 mmol/L (22.0-30.0); Chloride 107 mmol/L (98-107); Chol/HDL Ratio 3.8 (1-3.5); Cholesterol 177 mg/dl (140-200); Estimated Glomerular Filt Rate 70 ml/min (>60); GFR (African American) 85 ML/MIN (>60); Globulin 3.1 g/dL (1.3-3.2); Glucose 96 mg/dl (74-100); HDL Cholesterol 47 mg/dl (40-60); Potassium 4.5 mmoL/L (3.5-5.1); Sodium 137 mmol/L (136-145); Total Protein,Serum 7.2 g/dl (6.3-8.2); Triglycerides 109 mg/dl (30-150); VLDL Cholesterol 22 mg/dL (0-40)
[2023-07-08 19:27] LABS: Direct LDL Cholesterol 102.47 mg/dL (100-129)
[2023-07-08 19:35] LABS: 25-OH Vitamin D, Total 55.5 ng/mL (30-100)
[2023-07-08 19:46] LABS: Thyroid Stimulating Hormone 2.45 uIU/mL (0.465-4.68)
[2023-07-08 23:38] LABS: Hemoglobin A1C 5.3 % (4.0-6.0)
== END ==
PROVIDERS: PCP Internal Medicine; Visit Provider Internal Medicine
DX: I10 Essential (primary) hypertension (principal); Z01.818 Encounter for other preprocedural examination; E11.9 Type 2 diabetes mellitus without complications; E55.9 Vitamin D deficiency, unspecified
CPT/HCPCS: 80053; 80061; 82306; 83036; 84443; 85025

== ENCOUNTER 2024-01-08 13:56 | Outpatient (CLI) | payer MEDICARE, OTHER, SELFPAY ==
--- NOTE | 2024-01-08 13:56 | MM_ITS ---
PROCEDURE INFORMATION: Exam: MG Bilateral Screening 3D Mammography Exam date and time: 01/08/2024 1:43 PM Age: 73 years old Clinical indication: Screening. No family history of breast cancer. TECHNIQUE: Imaging protocol: Bilateral Screening tomosynthesis and 2D mammography including computer-aided detection (CAD) when performed. COMPARISON: 1. MG MM DIG SCREENING MAMM BI W/CAD 01/05/2023 9:46 AM 2. MG MM DIG SCREENING MAMM BI W/CAD 01/01/2022 9:50 AM 3. MG MM DIG SCREENING MAMM BI W/CAD 12/31/2020 9:56 AM 4. MG MM DIG SCREENING MAMM BI W/CAD 12/30/2019 9:05 AM FINDINGS: MAMMOGRAPHY: Breast composition: There are scattered areas of fibroglandular density. Mass: No suspicious mass. Architectural distortion: None. Calcifications: No suspicious calcifications. Asymmetric density: None. Skin thickening: None. Axillary adenopathy: None. IMPRESSION: No mammographic evidence of malignancy. Annual screening is recommended unless otherwise clinically indicated. ASSESSMENT: BI-RADS Category 1: Negative
== END 2024-01-08 23:59 | disposition home or self-care (01) ==
LOC: RAD 13:56
PROVIDERS: PCP Internal Medicine; Visit Provider Internal Medicine
DX: Z12.31 Encounter for screening mammogram for malignant neoplasm of breast (principal)
CPT/HCPCS: 77063; 77067

== ENCOUNTER 2024-03-15 19:11 | Outpatient (CLI) | payer MEDICARE, OTHER, SELFPAY ==
[2024-03-15 21:04] LABS: Albumin Level 3.9 g/dl (3.5-5.0); Chloride 106 mmol/L (98-107); Potassium 4.9 mmoL/L (3.5-5.1); Sodium 143 mmol/L (136-145)
[2024-03-15 21:07] LABS: Alanine Aminotransferase 19 U/L (12-78); Albumin/Globulin Ratio 1.3 (1.1-1.8); Alkaline Phosphatase 79 U/L (38-126); Anion Gap 12.9 mEq/L (5-15); Aspartate Amino Transferase 26 U/L (14-36); Bilirubin,Total 0.9 mg/dl (0.2-1.3); Blood Urea Nitrogen 23 mg/dl (7-17); Calcium 9.5 mg/dl (8.4-10.2); Carbon Dioxide 29 mmol/L (22.0-30.0); Estimated Glomerular Filt Rate 70 ml/min (>60); GFR (African American) 85 ML/MIN (>60); Glucose 93 mg/dl (74-100); Total Protein,Serum 6.9 g/dl (6.3-8.2)
[2024-03-15 21:21] LABS: Hemoglobin A1C 5.7 % (4.0-6.0)
== END 2024-03-15 23:59 | disposition home or self-care (01) ==
LOC: LAB 19:12
PROVIDERS: PCP Internal Medicine; Visit Provider Internal Medicine
DX: E11.9 Type 2 diabetes mellitus without complications (principal); R53.83 Other fatigue
CPT/HCPCS: 80053; 83036

== ENCOUNTER 2024-03-15 19:43 | Outpatient (CLI) | payer MEDICARE, OTHER, SELFPAY | END 2024-03-15 23:59 | disposition home or self-care (01) | LOC: LAB.DROPOF 19:46 | PROVIDERS: PCP Internal Medicine; Visit Provider Internal Medicine | DX: I10 Essential (primary) hypertension (principal); R35.0 Frequency of micturition; R39.15 Urgency of urination; R32 Unspecified urinary incontinence; E66.9 Obesity, unspecified; Z68.34 Body mass index [BMI] 34.0-34.9, adult | CPT/HCPCS: 80053; 83036; 87086 ==

== ENCOUNTER 2025-02-01 15:23 | Outpatient (CLI) | payer MEDICARE, OTHER, SELFPAY ==
--- OUTSIDE RECORDS SUMMARY | 2025-02-01 15:25 | XMS_ITS ---
Author Organization Unknown TREATMENT PLAN [facility] Start Date Provider Encounter for Check-up [id number] [facility]
--- OUTSIDE RECORDS SUMMARY | 2025-02-01 15:25 | XMS_ITS | Encounter Summary ---
Author Organization Healthcare Address [address] [place] [address] Care Team Providers Care Railroad Police Name Role Phone Unavailable Primary Care Provider Unavailabl e Encounter Details Date Type Department Care Team (Late st Contact Info) Description 06/30/2023 Lab Requisition [facility] [address] [place] [address] Social History Tobacco Use Types Packs/Day Years Used Date Smoking Tobacco: Never Assessed Comments Unknown Sex and Gender Information Value Date Recorded Sex Assigned at Not on file Legal Sex Female 7:42 PM EDT Gender Identity Not on file Sexual Orientation Not on file documented as of this encounter Plan of Treatment Not on file documented as of this encounter Visit Diagnoses Not on filedocumented in this encounter
--- OUTSIDE RECORDS SUMMARY | 2025-02-01 15:25 | XMS_ITS | Clinical Summary ---
Author Organization [facility] Address [address] [place] [address] Care Team Providers Care Trim Operator Name Role Phone Unavailable Primary Care Provider Unavailabl e Social History Tobacco Use Types Packs/Day Years Used Date Smoking Tobacco: Never Assessed Comments Unknown Sex and Gender Information Value Date Recorded Sex Assigned at Not on file Legal Sex Female 7:42 PM EDT Gender Identity Not on file Sexual Orientation Not on file Plan of Treatment Not on file
--- NOTE | 2025-02-01 15:30 | MM_ITS ---
PROCEDURE INFORMATION: Exam: MG Bilateral Screening 3D Mammography Exam date and time: 02/01/2025 3:33 PM Age: 74 years old Clinical indication: Screening examination TECHNIQUE: Imaging protocol: Bilateral Screening tomosynthesis and 2D mammography including computer-aided detection (CAD) when performed. COMPARISON: 1. MG MM DIG SCREENING MAMM BI W/CAD 01/08/2024 1:43 PM 2. MG MM DIG SCREENING MAMM BI W/CAD 01/05/2023 9:46 AM FINDINGS: MAMMOGRAPHY: Breast composition: There are scattered areas of fibroglandular density. Mass: None. Architectural distortion: None. Calcifications: No suspicious calcifications. Asymmetric density: None. Skin thickening: None. Axillary adenopathy: None. IMPRESSION: No mammographic evidence of malignancy. Annual screening is recommended unless otherwise clinically indicated. ASSESSMENT: BI-RADS Category 1: Negative.
== END 2025-02-01 23:59 | disposition home or self-care (01) ==
LOC: RAD 15:24
PROVIDERS: PCP Family Medicine; Visit Provider Family Medicine
DX: Z12.31 Encounter for screening mammogram for malignant neoplasm of breast (principal); R92.323 Mammographic fibroglandular density, bilateral breasts
CPT/HCPCS: 77063; 77067

== ENCOUNTER 2025-02-03 10:17 | Outpatient (CLI) | payer MEDICARE, OTHER, SELFPAY ==
[2025-02-03 14:58] LABS: Alanine Aminotransferase 17 U/L (12-78); Albumin Level 4.3 g/dl (3.5-5.0); Albumin/Globulin Ratio 1.4 (1.1-1.8); Alkaline Phosphatase 77 U/L (38-126); Anion Gap 15.9 mEq/L (5-15); Aspartate Amino Transferase 24 U/L (14-36); Bilirubin,Total 1.1 mg/dl (0.2-1.3); Blood Urea Nitrogen 22 mg/dl (7-17); Calcium 9.7 mg/dl (8.4-10.2); Carbon Dioxide 26 mmol/L (22.0-30.0); Chloride 104 mmol/L (98-107); Cholesterol 148 mg/dl (140-200); Creatinine,Serum 0.80 mg/dl (0.52-1.04); Estimated Glomerular Filt Rate 70 ml/min (>60); GFR (African American) 85 ML/MIN (>60); Globulin 3.1 g/dL (1.3-3.2); Glucose 102 mg/dl (74-100); HDL Cholesterol 45 mg/dl (40-60); Potassium 4.9 mmoL/L (3.5-5.1); Sodium 141 mmol/L (136-145); Total Protein,Serum 7.4 g/dl (6.3-8.2); Triglycerides 106 mg/dl (30-150)
--- OUTSIDE RECORDS SUMMARY | 2025-02-06 10:23 | XMS_ITS | Encounter Summary ---
Author Organization Healthcare Address [address] [place] [address] Care Team Providers Care Network Programmer Name Role Phone Unavailable Primary Care Provider Unavailabl e Encounter Details Date Type Department Care Team (Late st Contact Info) Description 06/30/2023 Lab Requisition [facility] [address] [place] [address] Social History Tobacco Use Types Packs/Day Years [...]
--- OUTSIDE RECORDS SUMMARY | 2025-02-06 10:23 | XMS_ITS | Clinical Summary ---
Author Organization [facility] Address [address] [place] [address] Care Team Providers Care [place] Vessel Pilot Name Role Phone Unavailable Primary Care Provider [...]
== END 2025-02-03 23:59 | disposition home or self-care (01) ==
LOC: LAB.DROPOF 02-06 10:18
PROVIDERS: PCP Family Medicine; Visit Provider Family Medicine
DX: I10 Essential (primary) hypertension (principal)
CPT/HCPCS: 80053; 80061